=== PATIENT | female | born 1950 | race Caucasian/White ===

== ENCOUNTER 2016-05-09 14:33 | Emergency (ER) | payer MEDICAID ==
[2016-05-09] MEDS ORDERED: ONDANSETRON 4 MG VIAL ONE (16:49)
== END 2016-05-09 19:33 | disposition home or self-care (01) ==
LOC: ER 14:33
CPT/HCPCS: 70450; 71010; 93005; 96374

== ENCOUNTER 2016-05-25 17:29 | Emergency (ER) | payer MEDICARE, MEDICAID | END 2016-05-25 20:00 | disposition left against medical advice (07) | LOC: ER 17:29 | DX: Z53.21 Procedure and treatment not carried out due to patient leaving prior to being seen by health care provider (principal) | CPT/HCPCS: 99281 ==

== ENCOUNTER 2016-06-14 21:41 | Emergency (ER) | payer MEDICARE, MEDICAID | END 2016-06-15 01:14 | disposition left against medical advice (07) | LOC: ER 21:41 | DX: Z53.21 Procedure and treatment not carried out due to patient leaving prior to being seen by health care provider (principal) | CPT/HCPCS: 36415; 71010; 80053; 82553; 83880; 84484; 85025; 93005 ==